=== PATIENT | male | born 1980 | race Caucasian/White ===

== ENCOUNTER → 2017-11-22 | Outpatient (CLI) | payer OTHER ==
--- NOTE | 2017-11-22 11:42 | RAD ---
EXAM: Abdomen and pelvis CT without intravenous contrast. HISTORY: Flank pain. TECHNIQUE: Computed tomographic images of the abdomen and pelvis were obtained without contrast. Multiplanar reformatting was performed. *One or more of the following individualized dose reduction techniques were utilized for this examination: 1. Automated exposure control. 2. Adjustment of the mA and/or kV according to patient size. 3. Use of iterative reconstruction technique. COMPARISON: None. FINDINGS: Evaluation of the lower thorax is unremarkable. No hepatic lesion is seen. The gallbladder, pancreas and adrenal glands are unremarkable. There is a single granuloma within the spleen. There is no evidence of nephroureterolithiasis. There is a suspected 5 mm partially exophytic lesion along the posterior mid zone of the left kidney, too small to characterize. There is a 10 mm partially exophytic hypodense lesion along the medial upper mid zone of the right kidney, likely a hemorrhagic cyst. There is no appendicitis. There is no bowel obstruction. The bladder is unremarkable. There is no lymphadenopathy. The aorta is normal in caliber. There is no suspicious osseous lesion. There are few thoracic and lumbar endplate Schmorl's nodes. IMPRESSION: 1. No evidence of nephroureterolithiasis or obstructive uropathy. 2. 10 mm hypodense lesion within the medial upper mid zone of the right kidney, the appearance of which favors a hemorrhagic cyst. There is also a 5 mm partially exophytic lesion along the posterior mid zone of the left kidney which may be a cyst. These are difficult to characterize in the absence of contrast. These may be visible sonographically to confirm benignity. Electronically signed by: Haley Barbosa MD (11/22/2017 11:38 AM) [place] [id number]
== END | disposition home or self-care (01) ==
LOC: CT 10:47
PROVIDERS: ATTEND Nurse Practitioner Adult Health
DX: N28.89 Other specified disorders of kidney and ureter (principal); D73.89 Other diseases of spleen
CPT/HCPCS: 74176